=== PATIENT | male | born 1945 | race Caucasian/White ===

== ENCOUNTER 2016-08-15 15:18 | Inpatient (IN) | payer MEDICARE ==
[~2016-08-15] VITALS: Ht 182.8 cm; Wt 99.8 kg
--- NOTE | ~2016-08-15 | PR ---
[place], [place] PROGRESS NOTE [id number] UNIT #: [id number] ROOM: 314 DOCTOR: NATALIA AVALOS BIRTHDATE: [birth year] DOS: 08/21/2016 CHIEF COMPLAINT: "Good morning, my sleep is off a little bit last night." SUMMARY OF VISIT: The patient was interviewed in the dining room where he engaged readily in conversation. Good eye contact, responses were appropriate. Denies any side effects of medication initially, but then stated that he did notice that he is having a little bit of diarrhea. I told him that we keep an eye on the next 24 hours. I want him to get plenty of fluids to offset any of the diarrhea and he concurred. MENTAL STATUS: He is alert and oriented. Mood trending towards euthymic. Affect more appropriate. He did seem tired today and again he just felt that his sleep was a little bit off last night. PLAN: We will continue with the current psychotropics. I want to see how he sleeps tonight. If I need to, I can increase or add something to help with sleep. I want to see how he does over the next 24 hours and I do not want to change anything because of the diarrhea on top of the fact that he has a decubitus I do not want any complications there. We will see how his mood does continue to work with PT and OT and go from there. AUDI AVALOS CNP CM:PNTRANS [id number] NATALIA AVALOS 08/21/16 1225 interface
--- NOTE | ~2016-08-15 | DS ---
[place], [place] DISCHARGE SUMMARY NAME: [facility] [id number] UNIT #: [id number] ROOM: 314 DOCTOR: KEVIN PATEL MD BIRTHDATE: [birth year] DOS: 08/26/2016 CHIEF COMPLAINT: "I really need my matchsticks." HISTORY OF PRESENT ILLNESS: This is a 71-year-old white male who was sent here on an involuntary basis from [facility]. The patient was brought there after he was found in his apartment unresponsive. The patient apparently has a lengthy psychiatric history and is followed by Dr. Li. The patient also has a history of stopping at a local [employer] in [place] on a daily basis; however, when he did not show up at the store for several days, a very concerned worker who knew where he lived went to find him and was able to gain access into his apartment and found him there unresponsive. He was brought in to the Emergency Room at [place] and stay there several days waiting for a bed. He was found to be very depressed and somewhat confused and was not able to give a very good history. He was subsequently admitted to the [facility] to rule out further organic factors and to stabilize on medication determining then the most appropriate discharge post when he is ready to leave. PAST MEDICAL HISTORY: Remarkable for GERD, hyperlipidemia, rhabdomyolysis and a sacral decubiti. SUMMARY OF THE HOSPITAL COURSE: The patient was admitted to the unit where many of his medications that he reported taking at home were discontinued, in excess of a dozen medicines were discontinued and he was started on Vraylar 1.5 mg at bedtime and initially, his Cymbalta was increased from 60 to 90 and then 120 mg at bedtime. Vraylar was gradually increased from its starting dose of 1.5 mg to its target dose of 6 mg at bedtime. He tolerated this titration of the Vraylar well exhibiting no extrapyramidal symptoms, tardive dyskinesia, or any other side effects. After well, it became obvious that the Cymbalta itself was not going to work to treat his depression and his sleep. It was eventually discontinued in lieu of Remeron 15 mg at bedtime, which was later increased to 30 mg at bedtime with good results, hydroxyzine 100 mg at bedtime was utilized as a non-addictive sleep aid. Additionally, screening examinations upon admission showed him to have a low vitamin D level, so vitamin D 50,000 international units weekly was added and a low folic acid level of folic acid 1 mg a day was added. He had improved sufficiently mentally to be ready to be discharged; however, he did have some unsteadiness in his gait and his wound on his coccyx area was still requiring intervention, so it was determined that for safety reasons, he should go to [facility] to have further rehabilitation. He was discharged then on 08/26/2016 to return to [place]. MENTAL STATUS AT DISCHARGE: The patient was alert and oriented to person, place, and time. Mood was strongly trending towards euthymia and affect was much more appropriate. There was no symptom suggestive of jr or hypomania. No auditory or visual hallucinations. No delusions, no paranoia. Memory was fully intact. FINAL DIAGNOSIS: Bipolar, type 2. PLAN: The patient is being admitted to [facility] for further [place], [place] DISCHARGE SUMMARY NAME: [facility]: [id number] UNIT #: [id number] ROOM: [facility] DOCTOR: KEVIN PATEL MD BIRTHDATE: [birth year] rehabilitation and treatment. I will follow him upon his admission there. KEVIN PATEL MD CM:DISCHARG 0836 KEVIN PATEL MD 08/26/16 0910 interface
--- NOTE | ~2016-08-15 | PR ---
[place], [place] PROGRESS NOTE NAME: [facility] #[facility] [id number] UNIT #: [id number] ROOM: 314 DOCTOR: KEVIN PATEL MD BIRTHDATE: [birth year] DOS: 08/18/2016 CHIEF COMPLAINT: "I think I am feeling a little better." SUMMARY OF THE VISIT: The patient was interviewed at the dining area. He was much more conversant and less guarded and suspicious than he was yesterday or the previous stay, he actually engaged in conversation, stating that he is feeling better. He is sleeping better. He has a little afraid of returning home alone that he would be unsteady and fall again, although he does say that he is less shaky on his feet now that his medications have been simplified. He feels that they are working without any significant side effects. He is willing to allow me to adjust them accordingly. MENTAL STATUS: He is alert and oriented. He has some time gaps, but overall is fairly intact. Mood is strongly trending towards euthymia. Affect is much more appropriate. There are no symptoms of jr or hypomania. There is no overt auditory or visual hallucinations. Memory is fairly well intact for short, intermediate, and intermediate. PLAN: I will maximize on his Vraylar dose to 6 mg at bedtime. Continue to engage in individual and smith milieu activity with the plan to return home when psychiatrically stable. KEVIN PATEL MD CM:PNTRANS 0825 [id number] KEVIN PATEL MD 08/18/16 1008 interface
--- NOTE | ~2016-08-15 | PR ---
[place], [place] PROGRESS NOTE NAME: [facility] #[facility] [id number] UNIT #: [id number] ROOM: 314 DOCTOR: NATALIA AVALOS BIRTHDATE: [birth year] DOS: 08/25/2016 CHIEF COMPLAINT: "Good morning." SUMMARY OF VISIT: The patient was interviewed in the dining room where he smiled, engaged in nonsensical conversations at times, but was quite pleasant. Nursing notes no behaviors or issues. MENTAL STATUS: He is alert and oriented to person, I think place, not time. Mood euthymic. Affect is appropriate. There are no overt signs of auditory or visual hallucinations, delusions, paranoia. The patient states that the medication adjustments are helping him sleep. He is still getting his days and nights confused, but other than that, he is acknowledging good sleep as well. We will keep him on the current medications. Monitor and see if his sleep is still good tonight and go from there. AUDI AVALOS CNP CM:PNTRANS [id number] NATALIA AVALOS 08/25/16 1659 interface
--- NOTE | ~2016-08-15 | PR ---
[place], [place] PROGRESS NOTE [id number] UNIT #: [id number] ROOM: 314 DOCTOR: KEVIN PATEL MD BIRTHDATE: [birth year] DOS: 08/19/2016 CHIEF COMPLAINT: "I think I feel a little better, but I'm not ready to go home." SUMMARY OF THE VISIT: The patient was interviewed in the dining area. He sat at the edge of the room, he did engage in conversation and seems much less paranoid and more stable than he did upon admission. He does voice fearfulness to return home and is afraid that he is at risk for falling again and will once again lay there for days unattended and he is fearful of this sequela that will occur because of this. He does report that he tolerates his medicine well, does notice there were a little unsteadiness in his feet. MENTAL STATUS: He is alert and oriented. Mood does seem to be trending towards euthymia and affect is more appropriate. There are no symptoms of jr or hypomania. There are no auditory or visual hallucinations, delusions or paranoia. Short, intermediate, and long-term memory are intact. PLAN: I will increase his Remeron from 15 to 30 mg at bedtime as most man require the higher dose to be effective. This also will lessen the risk of any daytime somnolence lessening the risk of falls, maintain his dose of Vraylar. Continue aggressive PT, OT and wound care, engage in individual and smith milieu activity with the plan then to return home when stable. KEVIN PATEL MD CM:PNTRANS [id number] KEVIN PATEL MD 08/19/16 1016 interface
--- NOTE | ~2016-08-15 | PR ---
[place], [place] PROGRESS NOTE [facility]: [id number] UNIT #: [id number] ROOM: 314 DOCTOR: KEVIN PATEL MD BIRTHDATE: [birth year] DOS: 08/20/2016 INTERVAL NOTE CHIEF COMPLAINT: "I slept well. I think I am feeling better." SUMMARY OF THE VISIT: The patient was interviewed in the dining area where he sat in front of his breakfast. He engaged readily in conversation and was spontaneous and bright. He did report that he slept well through the night and he does feel that he is making steady progress with the current medication regimen and feels that his mood is brightening day by day. He is still very fearful about returning home without supervision and fears that he could potentially fall again stating that he is still somewhat unsteady on his feet. PT does note that he did seem to do better today in physical therapy and is hopeful that this will continue to trend toward improvement. MENTAL STATUS: He is alert and oriented. Mood does seem to be strongly trending towards euthymia and affect is more appropriate. There are no symptoms of hypomania or jr. There are no overt auditory or visual hallucinations. No delusions or paranoia are present. Short, intermediate, and long-term memory are intact. PLAN: I will maintain the current psychotropic regimen. Engage in individual and smith milieu activity. Engage in PT, OT, returning home when stable. KEVIN PATEL MD CM:PNTRANS 0924 [id number] KEVIN PATEL MD 08/20/16 1146 interface
--- NOTE | ~2016-08-15 | PR ---
[place], [place] PROGRESS NOTE [facility] [id number] UNIT #: [id number] ROOM: 314 DOCTOR: NATALIA AVALOS BIRTHDATE: [birth year] DOS: 08/22/2016 CHIEF COMPLAINT: "Good morning." SUMMARY OF VISIT: The patient was interviewed in the dining room where he was eating breakfast, he engaged in conversation. He was seen earlier working with physical therapy. He appears to have good appetite. Advised me he did not really want to talk as he was busy eating. MENTAL STATUS: Alert and oriented to person, maybe place. Mood is definitely trending towards euthymic. Affect was more appropriate, good sleep; the p.r.n. Vistaril did help significantly last night. I am going to go ahead and schedule this for him, because he made a note to the nurse that it was the best sleep he had in a long time. PLAN: We will continue with the current psychotropics, the only addition is I am adding Vistaril 50 mg at bedtime to help with sleep. We will continue to try to engage in individual and smith milieu therapy. Continue with PT and OT. Plan to discharge when stable. AUDI AVALOS CNP CM:PNTRANS [id number] NATALIA AVALOS 08/22/16 1008 interface
--- NOTE | ~2016-08-15 | PR ---
[place], [place] PROGRESS NOTE [id number] UNIT #: [id number] ROOM: 314 DOCTOR: NATALIA AVALOS BIRTHDATE: [birth year] DOS: 08/24/2016 CHIEF COMPLAINT: "Good morning." SUMMARY OF VISIT: The patient was interviewed in the dining room where he was sitting in recliner in the back of the room, watching TV and just relaxing. He engaged readily in conversation. When I asked how he slept last night, he said not well; however, nursing notes that he slept greater than 6 hours. When I brought this to his attention, he said "I don't think it was quite 6 hours, but may be close to that." No issues regarding behaviors per nursing. MENTAL STATUS: He is alert and oriented to person, place, I do not think time. Mood definitely trending towards euthymic. There is no jr or hypomania. No overt signs of auditory or visual hallucinations, delusions or paranoia. Overall, memory does appear to be intact. He is just fixated right now with regards to sleep. PLAN: Dr. Gordillo increased his Vistaril to 100 mg last night and we continued with his other psychotropics. I want to see how he does tonight. I challenged him to pay attention to when he was going to sleep. Nursing did note that in the middle of the afternoon, he thinks that it is the middle of the night, and at the middle of the night, he thinks it is the afternoon. The patient denies that he is getting his days and nights messed up. I want to see how he sleeps tonight and then we will go from there. AUDI AVALOS CNP CM:PNTRANS [id number] [id number] NATALIA AVALOS 08/24/16 1604 interface
--- NOTE | ~2016-08-15 | PR ---
[place], [place] PROGRESS NOTE NAME: [facility] #: [id number] UNIT #: [id number] ROOM: 314 DOCTOR: KEVIN PATEL MD BIRTHDATE: [birth year] DOS: 08/23/2016 INTERVAL NOTE CHIEF COMPLAINT: "I still didn't sleep last night." SUMMARY OF THE VISIT: The patient was interviewed as he sat in the back of the dining area. He was bright and pleasant upon approach, but once again reported that he could not shut his thoughts down and had trouble sleeping. He endorsed both difficulty falling asleep and sleep continuity disturbance and states that this is ongoing, both here and at home. He also reported that he is still having issues with the wound on his coccyx area and that it is causing him some increased pain. Mood does seem to be trending towards euthymia; however, and he is tolerating the current medication regimen well. MENTAL STATUS: He is alert and oriented. He does seem to be trending towards improvement. There is no hypomania or jr. There are no overt auditory or visual hallucinations. No delusions or paranoia are present. Memory seems relatively intact. PLAN: I will increase the nighttime dose of Vistaril to 100 mg at bedtime, maintain his other psychotropics. I did discuss going to [place] and did have an opportunity to meet the director multimedia and lpta from [place] to discuss aftercare with the patient once he returns there. We will continue to engage him in individual and smith milieu activity, discharging when stable. KEVIN PATEL MD CM:PNTRANS [id number] KEVIN PATEL MD 08/23/16 2348 interface
--- NOTE | ~2016-08-15 | CON ---
[place], [place] REPORT OF CONSULTATION NAME: VIRGIL KHAN [facility] #: [id number] UNIT #: [id number] ROOM: 314 DOCTOR: MICHELLE GarzaANANYA BIRTHDATE: [birth year] DOS: 08/19/2016 WOUND CARE CONSULTATION HISTORY OF PRESENT ILLNESS: This is a 71-year-old male, who was admitted to the U unit from [facility] for brief psychotic disorder. There is a history of recent hospitalization for rhabdomyolysis. He had been discharged and felt to be medically stable, but returned when he became agitated at the long-term. He apparently has a history of being laid on the floor after a fall at home for 5 days. He was noted to be unresponsive and he was brought into [facility] and had been there treated for several days in the emergency room. Apparently, he has a history of going to [employer] on a daily basis and when he had not shown up from several days, a worker felt concerned and found him lying on the floor unresponsive. He has a pressure ulcer of his buttock area that was fairly large and this is why Wound Care has been consulted. PAST MEDICAL HISTORY: Significant for GERD, hyperlipidemia, rhabdomyolysis. He does have an extensive psychiatric history. He has a history of anxiety, dementia, depression, transaminitis. PAST SURGICAL HISTORY: He is status post appendectomy, tonsillectomy. SOCIAL HISTORY: He does not smoke or drink. FAMILY HISTORY: Significant for coronary artery disease and early onset Alzheimer. ALLERGIES: No known drug allergies. CURRENT MEDICATIONS: As follows: Remeron 30 mg p.o. at bedtime, Vistaril 50 mg q. 4 hours p.r.n., Lac-Hydrin b.i.d. topically, Pepcid 20 daily, folic acid 1 mg daily, vitamin D 50,000 units on Friday, Senokot 8.6 mg p.o. at bedtime, Lopressor 25 p.o. b.i.d., Visine q. 4 hours p.r.n., Geodon 10 mg IM q. 4 hours p.r.n., milk of mag p.r.n. REVIEW OF SYSTEMS: He does not really complain of any pain at the present time on his wound. He denies any chest pain, shortness of breath, nausea, vomiting or diarrhea. He says his appetite is good. PHYSICAL EXAMINATION: VITAL SIGNS: His temperature is 97.8, pulse of 77, respirations 18, blood pressure is 142/78. GENERAL: This is an elderly male, who is in no acute distress, pleasant and cooperative. NECK: There is no JVD. LUNGS: Clear. CARDIOVASCULAR: S1, S2, regular rate and rhythm. ABDOMEN: Soft. EXTREMITIES: He has no edema and no calf tenderness. He has a healing wound on [place], [place] REPORT OF CONSULTATION NAME: VIRGIL KHAN UNIT #: [id number] ROOM: 314 DOCTOR: ANANYA MARTINEZ M.D. BIRTHDATE: [birth year] his knee that appears to be from an abrasion, it is healing at this time. He has a fairly large unstageable ulcer on the left buttock area that is measuring 10.5 x 8.5. There is some adherent slough as well as some obvious central necrosis present. There is no purulence or odor. Surrounding periwound area is erythematous. It is not acutely tender. He did not have a dressing on it though it looked like he had some sort of Tegaderm on it that was basically rolled up and not even on the wound. He had a soiled undergarments noted as well. He does not have a history of stool incontinence that he is aware of. LABORATORY DATA: Show white count of 9.4, hemoglobin of 13, platelets of 220,000. BUN is 27, creatinine is 1. LFTs are okay. Total protein is 6.8, albumin is 2.9, vitamin D is low, folate is low. ASSESSMENT AND PLAN: Unstageable buttock pressure ulcer, likely secondary to when he was found on the floor at home, he had been on the floor for several days, sounds like there is a fair amount of necrosis still present. TheraHoney has been ordered. I would like to add a foam dressing. The patient apparently refused to having any wound care over the weekend, so he does seem agreeable to trying more recommendations, I would avoid any direct pressure to this wound if possible. I did explain to the patient that he should try to stay off it when he is lying in bed and he will need a cushion for when he is in his seated position. I did explain that at some point, this may need debrided and he does seem agreeable to coming down to the wound center when he is feeling better, so I would definitely recommend a followup in the wound care center once he is feeling better. I would also recommend a protein supplement as well. ANANYA MARTINEZ MD CM:CONSTR:REPORT OF CONSULTATION 1106 08/19/16 1457 interface
--- NOTE | ~2016-08-15 | PR ---
[place], [place] PROGRESS NOTE NAME: VIRGIL KHAN [facility] #: [id number] UNIT #: [id number] ROOM: 314 DOCTOR: MICHELLE Garza,ANANYA BIRTHDATE: [birth year] DOS: 08/22/2016 SUBJECTIVE: The patient was seen today for followup of a pressure ulcer of the gluteal fold. The patient offers no specific complaints. He denies any changes regarding pain. When the wound was examined, it was noted that he did not have any dressing on the wound. It was completely open. The wound appeared about the same as it did the last time I had examined it. There is some slightly increased excoriation and distally from the wound secondary to what appears to be possible Monika dermatitis distally from the wound. Otherwise, I do not see any acute changes presently. ASSESSMENT AND PLAN: Unstageable pressure ulcer of the buttock. No significant change. He is on TheraHoney and a foam dressing has been ordered, and I would also add some nystatin powder distally to this where there does appear to be some dermatitis associated. I did explain to the patient about ordering the powder. He seems to be reluctant to trying it and is not quite sure if he is going to agree to it or not. We will continue with the TheraHoney for now, and once he is stable from a psychiatric standpoint, he can be seen at the [facility] as an outpatient for further wound care and debridement at that time. ANANYA MARTINEZ MD CM:PNTRANS 1730 ANANYA MARTINEZ M.D. 08/23/165 interface
--- NOTE | ~2016-08-15 | PR ---
[place], [place] PROGRESS NOTE NAME: [facility] [id number] UNIT #: [id number] ROOM: 314 DOCTOR: KEVIN PATEL MD BIRTHDATE: [birth year] DOS: 08/17/2016 INTERVAL NOTE CHIEF COMPLAINT: "I am okay. I didn't sleep good, but I am okay." SUMMARY OF THE VISIT: The patient was interviewed in his room. At first, he was very standoffish and paranoid and suspicious and I could tell by his eyes, he was scanning the room behind me to see if there is anyone else listening. His responses at first were really guarded and rather terse; however, as I continue to engage him in conversation asking him what I can do to help, he overall softened his approach and conversed more readily with me. He did report he did not sleep well and his appetite was not good and has not always been good. MENTAL STATUS: He remains alert and oriented with time gaps. Mood does seem to be depressed with anxious overtones and there is a significant amount of guardedness and suspiciousness noted. There are no overt auditory or visual hallucinations; however, memory has some gaps, but this may also be because he is guarded. PLAN: I will discontinue his Cymbalta in lieu of Remeron 15 mg at bedtime. This should more dramatically improve sleep and appetite. I will increase his Vraylar from 3 mg at bedtime to 4.5 mg at bedtime to act as a mood stabilizer and to decrease some of the paranoia. Given the fact that he was on multiple benzodiazepines and sedative hypnotics, I will discontinue Ativan in lieu of a nonaddicting alternative Vistaril 50 mg q.4h. as needed. Will engage in individual and smith milieu activity with the plan to return home when stable. KEVIN PATEL MD CM:PNTRANS 0940 [id number] KEVIN PATEL MD 08/17/16 1046 interface
--- NOTE | ~2016-08-15 | CON ---
[place], [place] REPORT OF CONSULTATION NAME: VIRGIL KHAN [facility] #: [id number] UNIT #: [id number] ROOM: 314 DOCTOR: WILLOW GUERRERO DPM BIRTHDATE: [birth year] DOS: 08/16/2016 PODIATRY CONSULT He is in room 314, bed 1. SUBJECTIVE: This 71-year-old white male is seen as a consult for care of extremely thick and elongated toenails. He states they are uncomfortable with shoe gear. He states he has neuropathy and takes Neurontin for this. He has no other complaints in regards to his feet. PAST MEDICAL HISTORY: Positive for anxiety, dementia, depression, bipolar disease, gastroesophageal reflux disease, hyperlipidemia, recent rhabdomyolysis. ALLERGIES: The patient has no known drug allergies. MEDICATIONS: Trazodone, Ambien, Cymbalta, Neurontin, metoprolol, Seroquel, famotidine, Trintellix, , simvastatin, Xanax, Restoril, Sinequan. OBJECTIVE: Upon lower extremity physical examination, DP and PT pedal pulses are mildly decreased. Skin temp is cool to toes. CFT is delayed at 2 seconds. Skin is thin and shiny. Hair growth is decreased. Again, dependent edema bilaterally with negative Homans sign. Upon neuro exam, sensation is decreased in the forefoot bilaterally. No signs of muscle atrophy. Muscle strength does appear full without any deficits. He has decreased arch height bilaterally with contracted lesser digits. There are no ulcerations or thick callus tissue noted. Mild dry skin is noted on the heels. Nails 1 through 5 bilaterally are extremely thick, elongated brittle, discolored and dystrophic with subungual debris present. ASSESSMENT: Peripheral neuropathy with pes planus and hammertoe deformity, onychomycosis 1 through 5 bilaterally with mild peripheral arterial disease. PLAN: Consult is performed. Manual debridement of mycotic nails 1 through 5 bilaterally in length and thickness to the level of the nail bed. To reduce such infection, I discussed about different causes of neuropathy and treatments. The patient is not diabetic. He takes Neurontin, would recommend continue with that treatment as prescribed. We could follow him up in 9 weeks as an outpatient for palliative foot care. Thank you for the opportunity to take part in care of this patient. [place], [place] REPORT OF CONSULTATION NAME: VIRGIL KHAN UNIT #: [id number] ROOM: 314 DOCTOR: WILLOW GUERRERO DPM BIRTHDATE: [birth year] WILLOW GUERRERO DPM CM:CONSTR:REPORT OF CONSULTATION 1216 08/17/16 0209 interface
--- NOTE | ~2016-08-15 | WRIGHTHP ---
[place], [place] PATIENT HISTORY AND PHYSICAL EXAM NAME: [facility]AN [id number] UNIT #: [id number] ROOM: 314 DOCTOR: KEVIN PATEL MD BIRTHDATE: [birth year] DOS: 08/16/2016 INITIAL PSYCHIATRIC EVALUATION CHIEF COMPLAINT: "I really need my meds fixed." HISTORY OF PRESENT ILLNESS: This is a 71-year-old male who was sent here on an involuntary basis from [facility]. The patient was brought there. He apparently has a lengthy psychiatric history and is followed by Dr. Li. He also has a history of stopping at the [facility] in [place] on a daily basis; however, when he did not show up for multiple days, a very concerned worker went to his home and was able to obtain entry finding him having laid on the floor for approximately 5 days, unresponsive. He was brought into the Emergency Room of [facility] and stayed there several days because no bed could be found. While in the Emergency Room, he was found to be both depressed and also somewhat confused. He was not able to give a good history. He has a lengthy history of bipolar disorder and is on multiple medications. He is admitted now to rule out organic factors and attempt to stabilize on medication. PAST MEDICAL HISTORY: Remarkable for GERD, hyperlipidemia, rhabdomyolysis, also he does have a wound on his coccyx area. MENTAL STATUS: He is alert and oriented with time gaps. Mood does seem to be depressed with some anxious overtones. There is no jr or hypomania. There are no overt auditory or visual hallucinations. No delusions, no paranoia. Memory has gaps. DIAGNOSIS: Bipolar type 2. PLAN: I have already started him on Vraylar 1.5 mg at bedtime. I will increase the dose to 3 mg at bedtime and plan a rapid titration phase. I have increased his Cymbalta from 60 mg a day to 90 mg a day. We will attempt to simplify his overall regimen as it was rather complicated and filled with benzos and sedative hypnotics, which could be complicating his picture. We will engage him in individual and smith milieu activity. Screening examination showed him to have a low vitamin D level of 10.1. I have started him on vitamin D 50,000 international units weekly. His folic acid level was also low at 4.73. I have started him on folic acid 1 mg a day. We will engage in individual and smith milieu activity, then find the most least restrictive environment for him. [place], [place] PATIENT HISTORY AND PHYSICAL EXAM NAME: VIRGIL KHAN UNIT #: [id number] ROOM: [facility] DOCTOR: KEVIN PATEL MD BIRTHDATE: [birth year] KEVIN PATEL MD CM:HISPHYS:PATIENT HISTORY AND PHYSICAL EXAMINATION 1 3 KEVIN PATEL MD 08/16/16933 interface
[~2016-08-15 15:18] MED LIST: CLARITIN10 MG PO; TOBRADEX 0.1%-0.5 ML OPH; ZITHROMAX Z PA250 MG PO
[2016-08-15] MEDS ORDERED: TRAZODONE100 MG PO (16:21)
[2016-08-15] MEDS ORDERED: AMBIEN5 MG PO (16:21)
[2016-08-15] MEDS ORDERED: CYMBALTA60 MG PO (16:22)
[2016-08-15] MEDS ORDERED: NEURONTIN300 MG PO (16:29)
[2016-08-15] MEDS ORDERED: Lovenox40 MG/0.4 SC (16:34)
[2016-08-15] MEDS ORDERED: FAMOTIDINE20 M1 PO ×2 (16:35→16:43)
[2016-08-15] MEDS ORDERED: METOPROLOL25 MG PO (16:37)
[2016-08-15] MEDS ORDERED: SEROQUEL XR400 MG PO (16:38)
[2016-08-15] MEDS ORDERED: TRINTELLIX10 MG PO (16:45)
[2016-08-15] MEDS ORDERED: SENNO8.6 MG PO (16:46)
[2016-08-15] MEDS ORDERED: SIMVASTATIN40 MG PO (16:47)
[2016-08-15] MEDS ORDERED: VISINE 15 ML15 ML OPH (16:49)
[2016-08-15] MEDS ORDERED: RESTORIL15 MG PO (16:50)
[2016-08-15] MEDS ORDERED: XANAX1 MG PO (16:50)
[2016-08-15] MEDS ORDERED: SINEQUAN25 MG PO (16:51)
[2016-08-15] MEDS ORDERED: PENICILLIN-VK500 MG PO (16:54)
[2016-08-15 17:36] VITALS: BP 110/76
[2016-08-15 20:31] LABS: BASO # 0.1 10*3/uL (0.0-0.1); BASO % 0.6 % (0.0-1.0); EOS # 0.2 10*3/uL (0.0-0.4); EOS % 2.5 % (1.0-4.0); HEMATOCRIT 42.1 % (42.0-52.0); HEMOGLOBIN 13.4 g/dl (14.0-18.0); IG # 0.1 10*3/uL (0.0-0.1); LYMPH # 0.9 10*3/uL (1.3-4.4); LYMPH % 9.4 % (27.0-41.0); MEAN CELL VOLUME 86.1 fl (80.0-94.0); MEAN CORPUSCULAR HGB 27.4 pg (27.0-31.0); MEAN CORPUSCULAR HGB CONC 31.8 g/dl (33.0-37.0); MEAN PLATELET VOLUME 10.5 fl (9.6-12.3); MONO # 0.7 10*3/uL (0.1-1.0); MONO % 6.9 % (3.0-9.0); NEUT # 7.5 10*3/uL (2.3-7.9); NEUT % 79.7 % (47.0-73.0); PLATELET COUNT AUTOMATED 220 10*3/uL (130-400); RED BLOOD COUNT 4.89 10*6/uL (4.50-5.90); WHITE BLOOD COUNT 9.4 10*3/uL (4.8-10.8)
[2016-08-15 20:32] VITALS: BP 118/72
[2016-08-15 21:02] LABS: ALBUMIN 2.9 gm/dl (3.1-4.5); ALKALINE PHOSPHATASE 95 U/L (45-117); BUN 27 mg/dl (7-24); CARBON DIOXIDE 31 mmol/L (21-32); CHLORIDE 101 mmol/L (98-107); EST GLOM FILT AFRICAN AMERICAN > 60 ml/min; GLUCOSE 86 mg/dL (65-99); POTASSIUM 4.2 mmol/L (3.5-5.1); SGOT/AST 24 IU/L (3-35); SGPT/ALT 37 U/L (12-78); SODIUM 140 mmol/L (136-145); TOTAL PROTEIN 6.8 gm/dL (6.4-8.2)
[2016-08-15 22:10] LABS: FOLIC ACID 4.73 ng/mL (>5.38); VITAMIN D, 25-HYDROXY 10.1 ng/mL (30-100)
[2016-08-15 23:47] VITALS: BP 118/72
[2016-08-16 07:04] VITALS: BP 118/68
[2016-08-16 20:04] VITALS: BP 134/74
[2016-08-17 08:36] VITALS: BP 151/78
[2016-08-17 20:00] VITALS: BP 137/75
[2016-08-18 09:09] VITALS: BP 116/62
[2016-08-18 20:00] VITALS: BP 136/78
[2016-08-19 07:49] VITALS: BP 142/71
[2016-08-19 19:54] VITALS: BP 138/69
[2016-08-20 04:06] LABS: NEURONTIN (GABAPENTIN) 1.6 ug/mL (4.0-16.0)
[2016-08-20 08:00] VITALS: BP 136/87
[2016-08-20 20:13] VITALS: BP 116/57
[2016-08-21 07:51] VITALS: BP 142/80
[2016-08-21 20:08] VITALS: BP 124/69
[2016-08-22 08:00] VITALS: BP 127/69
[2016-08-22 20:14] VITALS: BP 114/74
[2016-08-23 08:15] VITALS: BP 154/87
[2016-08-23 18:34] LABS: BILIRUBIN NEGATIVE (NEGATIVE); BLOOD 1+ (NEGATIVE); CLARITY SL CLOUDY (CLEAR); COLOR YELLOW (YELLOW); GLUCOSE NEGATIVE (NEGATIVE); KETONE NEGATIVE (NEGATIVE); LEUKO ESTERASE NEGATIVE (NEGATIVE); NITRITE NEGATIVE (NEGATIVE); PH 5.5 (5.0-9.0); PROTEIN NEGATIVE (NEGATIVE); SPECIFIC GRAVITY >= 1.030 (1.005-1.030)
[2016-08-23 19:41] LABS: RBC 0-2 rbc/hpf (0-2)
[2016-08-23 19:42] LABS: BACTERIA 1+; MUCOUS 1+; URINE REFLEX COMMENT YES (NO); WBC 0-2 wbc/hpf (0-5)
[2016-08-23 19:52] VITALS: BP 124/69
[2016-08-24 08:00] VITALS: BP 136/69
[2016-08-24 19:46] VITALS: BP 130/71
[2016-08-25 07:46] VITALS: BP 128/70
[2016-08-25 19:52] VITALS: BP 108/68
[2016-08-26 07:22] VITALS: BP 125/67
[2016-08-26] MEDS ORDERED: ATARAX,VISTARIL50 MG PO (08:31)
[2016-08-26] MEDS ORDERED: VRAYLAR6 MG PO (08:31)
[2016-08-26] MEDS ORDERED: VITAMIN D50000 I3 PO (08:31)
[2016-08-26] MEDS ORDERED: MIRTAZAPINE30 M2 PO (08:31)
[2016-08-26] MEDS ORDERED: NATURE'S BLEND F1 MG PO (08:31)
== END 2016-08-26 13:15 | disposition other institution (70) | DRG 885 ==
LOC: 3N 15:18
PROVIDERS: Psychiatry & Neurology Psychiatry
DX: F31.81 Bipolar II disorder (principal); L89.300 Pressure ulcer of unspecified buttock, unstageable; L89.153 Pressure ulcer of sacral region, stage 3; F03.91 Unspecified dementia, unspecified severity, with behavioral disturbance; M62.82 Rhabdomyolysis; G62.9 Polyneuropathy, unspecified; F23 Brief psychotic disorder; K21.9 Gastro-esophageal reflux disease without esophagitis; E78.5 Hyperlipidemia, unspecified; F41.9 Anxiety disorder, unspecified; B35.1 Tinea unguium; I73.9 Peripheral vascular disease, unspecified; Z90.49 Acquired absence of other specified parts of digestive tract; Z82.0 Family history of epilepsy and other diseases of the nervous system; Z82.49 Family history of ischemic heart disease and other diseases of the circulatory system; Z79.899 Other long term (current) drug therapy